=== PATIENT | female | born 1960 | race Caucasian/White ===

== ENCOUNTER 2022-09-01 14:21 | Outpatient (CLI) | payer BC, SELFPAY ==
[2022-09-01 14:38] LABS: Basophils Absolute Auto 0.1 K/mm3 (0.0-0.1); Basophils Percent Auto 1.4 % (0.2-1.2); Eosinophils Absolute Auto 0.2 K/mm3 (0-0.3); Hematocrit 45.5 % (37.0-47.0); Hemoglobin 14.9 g/dL (12.0-15.0); Immature Granulocyte Absolute 0.01 K/mm3 (0.00-0.031); Immature Granulocyte Percent A 0.2 % (0-0.5); Lymphocytes Absolute Auto 1.39 K/mm3 (0.9-3.2); Lymphocytes Percent Auto 24.4 % (18.3-44.2); Mean Corpuscular HGB Conc 32.7 g/dl (32-36); Mean Corpuscular Hemoglobin 31.6 pg (26-34); Mean Corpuscular Volume 96.6 fl (80-100); Mean Platelet Volume 10.1 fl (7.4-10.4); Monocytes Absolute Auto 0.7 K/mm3 (0.1-0.6); Monocytes Percent Auto 11.4 % (2.6-8.5); Neutrophils Absolute Auto 3.3 K/mm3 (1.3-6.7); Neutrophils Percent Auto 58.6 % (45.5-73.1); Platelet Count Result 285 k/mm3 (150-375); Red Blood Count 4.71 M/mm3 (4.2-5.4); Red Cell Distribution Width 12.4 % (11.5-14.5); White Blood Count 5.7 K/mm3 (4.5-10.0)
[2022-09-01 16:16] LABS: Alanine Aminotransferase 28 U/L (6-35); Albumin Level 4.8 g/dL (3.5-5.1); Alkaline Phosphatase 36 U/L (38-126); Anion Gap 11 mmol/L (8-16); Aspartate Amino Transferase 33 U/L (14-36); Bilirubin,Total 0.7 mg/dL (0.2-1.3); Blood Urea Nitrogen 14 mg/dL (7-17); Calcium 9.7 mg/dL (8.4-10.2); Carbon Dioxide 26 mmol/L (22-30); Chloride 104 mmol/L (98-107); Estimated Glomerular Filt Rate > 60; Glucose 104 mg/dL (65-110); Potassium 4.2 mmol/L (3.4-5.0); Sodium 141 mmol/L (137-145)
[2022-09-04 08:08] LABS: CA 15-3 10 U/mL (<32)
== END 2022-09-01 14:22 | disposition home or self-care (01) ==
LOC: ANHLAB 14:24
PROVIDERS: Visit Provider Internal Medicine Hematology & Oncology
DX: C50.012 Malignant neoplasm of nipple and areola, left female breast (principal); Z17.0 Estrogen receptor positive status [ER+]
CPT/HCPCS: 36415; 80053; 85025; 86300

== ENCOUNTER 2023-09-01 12:52 | Outpatient (CLI) | payer BC, SELFPAY ==
--- NOTE | ~2023-09-01 | DEXA_ITS ---
Bone Density Report Name: HOLLI MARSHALL Age: 63 Sex: Female Ethnicity: White Date of : 1960 Indication: postmenopausal; screening for osteoporosis; cancer; hysterectomy; Referring Provider: MIGUE RED Study: Bone densitometry was performed. Exam Date: September 01, 2023 Accession number: [id number] Bone Density: Region BMD T-score Z-score Classification AP Spine(L1-L4) 1.105 0.5 2.2 Normal Femoral Neck (Left) 0.708 -1.3 0.2 Osteopenia Total Hip (Left) 0.948 0.1 1.2 Normal Femoral Neck (Right) 0.795 -0.5 1.0 Normal Total Hip (Right) 0.923 -0.2 1.0 Normal Total Hip Mean 0.935 -0.1 1.1 Normal World Health Organization criteria for BMD impression classify patients as: Normal (T-score at or above -1.0), Osteopenia (T-score between -1.0 and -2.5), or Osteoporosis (T-score at or below -2.5). 10-year Fracture Risk(1): Major Osteoporotic Fracture 7.6% Hip Fracture 0.6% Reported Risk Factors: [place] (), Neck BMD=0.708, BMI=37.6 (1) FRAX(R) Version 3.08. Fracture probability calculated for an untreated patient. Fracture probability may be lower if the patient has received treatment. Clinical Information Provided by Patient: Has used the following medications: Vitamin D, Calcium Has the following medical conditions: Cancer, Hysterectomy Patient maximum height was 68 Menopause Age: 46 Onset of menses at age 12 Number of children 2 Impression: The patient has low bone mass, based on the Left Femoral Neck T-score. The patient has an estimated ten-year risk of hip fracture of 0.6% and an estimated ten-year risk of major fracture of 7.6%, based on the WHO FRAX algorithm. Discussion: BONE DENSITY IS LOW AT ONE OR MORE SKELETAL SITES. This patient's lowest T-score is low at one or more skeletal sites. It meets the World Health Organization's (WHO) criteria for ?low bone mass? (T-score between -1.0 and -2.5). The patient's 10-year risk of fracture as calculated by FRAX is less than the threshold where pharmacological therapy is recommended by the National Osteoporosis Foundation (NOF). However, all treatment decisions require clinical judgment and consideration of individual patient factors, including patient preferences, comorbidities, previous drug use, risk factors not captured in the FRAX model (e.g., frailty, falls, vitamin D deficiency, increased bone turnover, interval significant decline in bone density) and possible under or overestimation of fracture risk by FRAX. The patient should follow a healthful lifestyle (good nutrition with adequate calcium and vitamin D, and appropriate weight-bearing exercise). Follow-Up: Consider repeating this study in 2 to 3 years to reassess this patient's status, or sooner if there is some new clinical indication. Reporte
== END 2023-09-01 12:53 | disposition home or self-care (01) ==
PROVIDERS: Visit Provider Internal Medicine Hematology & Oncology
DX: Z78.0 Asymptomatic menopausal state (principal); M85.89 Other specified disorders of bone density and structure, multiple sites
CPT/HCPCS: 77080

== ENCOUNTER 2023-09-07 14:02 | Outpatient (CLI) | payer BC, SELFPAY ==
[2023-09-07 14:25] LABS: Basophils Absolute Auto 0.1 K/mm3 (0.0-0.1); Basophils Percent Auto 1.4 % (0.2-1.2); Eosinophils Absolute Auto 0.2 K/mm3 (0-0.3); Eosinophils Percent Auto 3.4 % (0-4.4); Hematocrit 40.4 % (37.0-47.0); Hemoglobin 13.2 g/dL (12.0-15.0); Immature Granulocyte Absolute 0.02 K/mm3 (0.00-0.031); Immature Granulocyte Percent A 0.3 % (0-0.5); Lymphocytes Absolute Auto 1.39 K/mm3 (0.9-3.2); Lymphocytes Percent Auto 19.9 % (18.3-44.2); Mean Corpuscular HGB Conc 32.7 g/dl (32-36); Mean Corpuscular Hemoglobin 31.4 pg (26-34); Mean Platelet Volume 9.3 fl (7.4-10.4); Monocytes Absolute Auto 0.7 K/mm3 (0.1-0.6); Monocytes Percent Auto 10.4 % (2.6-8.5); Neutrophils Absolute Auto 4.5 K/mm3 (1.3-6.7); Neutrophils Percent Auto 64.6 % (45.5-73.1); Platelet Count Result 304 k/mm3 (150-375); Red Blood Count 4.21 M/mm3 (4.2-5.4); Red Cell Distribution Width 12.3 % (11.5-14.5)
[2023-09-07 17:48] LABS: Alanine Aminotransferase 26 U/L (6-35); Albumin Level 4.8 g/dL (3.5-5.1); Alkaline Phosphatase 34 U/L (38-126); Anion Gap 8 mmol/L (8-16); Aspartate Amino Transferase 59 U/L (14-36); Bilirubin,Total 0.7 mg/dL (0.2-1.3); Blood Urea Nitrogen 14 mg/dL (7-17); Calcium 9.6 mg/dL (8.4-10.2); Carbon Dioxide 26 mmol/L (22-30); Chloride 99 mmol/L (98-107); Estimated Glomerular Filt Rate > 60; Glucose 93 mg/dL (65-110); Potassium 4.2 mmol/L (3.4-5.0); Sodium 133 mmol/L (137-145)
[2023-09-11 20:45] LABS: CA 15-3 13 U/mL (<32)
== END 2023-09-07 14:03 | disposition home or self-care (01) ==
LOC: ANHLAB 14:04
PROVIDERS: Visit Provider Internal Medicine Hematology & Oncology
DX: C50.012 Malignant neoplasm of nipple and areola, left female breast (principal); Z17.0 Estrogen receptor positive status [ER+]
CPT/HCPCS: 36415; 80053; 85025; 86300

== ENCOUNTER 2024-09-05 12:05 | Outpatient (CLI) | payer MEDICARE, BC, SELFPAY ==
[2024-09-05 12:14] LABS: Basophils Absolute Auto 0.1 K/mm3 (0.0-0.1); Basophils Percent Auto 1.5 % (0.2-1.2); Eosinophils Absolute Auto 0.3 K/mm3 (0-0.3); Eosinophils Percent Auto 5.6 % (0-4.4); Hematocrit 40.1 % (37.0-47.0); Immature Granulocyte Absolute 0.02 K/mm3 (0.00-0.031); Immature Granulocyte Percent A 0.4 % (0-0.5); Lymphocytes Absolute Auto 1.35 K/mm3 (0.9-3.2); Mean Corpuscular HGB Conc 32.4 g/dl (32-36); Mean Corpuscular Hemoglobin 31.4 pg (26-34); Mean Corpuscular Volume 96.9 fl (80-100); Mean Platelet Volume 9.3 fl (7.4-10.4); Monocytes Absolute Auto 0.8 K/mm3 (0.1-0.6); Monocytes Percent Auto 13.9 % (2.6-8.5); Neutrophils Absolute Auto 2.9 K/mm3 (1.3-6.7); Neutrophils Percent Auto 53.6 % (45.5-73.1); Platelet Count Result 294 k/mm3 (150-375); Red Blood Count 4.14 M/mm3 (4.2-5.4); Red Cell Distribution Width 12.8 % (11.5-14.5); White Blood Count 5.4 K/mm3 (4.5-10.0)
[2024-09-05 17:08] LABS: Alanine Aminotransferase 27 U/L (6-35); Albumin Level 4.4 g/dL (3.5-5.1); Alkaline Phosphatase 32 U/L (38-126); Anion Gap 9 mmol/L (4-12); Aspartate Amino Transferase 31 U/L (14-36); Bilirubin,Total 0.7 mg/dL (0.2-1.3); Blood Urea Nitrogen 13 mg/dL (7-17); Carbon Dioxide 25 mmol/L (22-30); Chloride 105 mmol/L (98-107); Estimated Glomerular Filt Rate 50; Glucose 97 mg/dL (65-110); Potassium 4.5 mmol/L (3.4-5.0); Sodium 139 mmol/L (137-145)
[2024-09-07 11:59] LABS: CA 15-3 9 U/mL (<32)
== END 2024-09-05 12:06 | disposition home or self-care (01) ==
LOC: ANHLAB 12:06
PROVIDERS: Visit Provider Internal Medicine Hematology & Oncology
DX: C50.012 Malignant neoplasm of nipple and areola, left female breast (principal); Z17.0 Estrogen receptor positive status [ER+]
CPT/HCPCS: 36415; 80053; 85025; 86300

== ENCOUNTER 2025-09-17 09:40 | Outpatient (CLI) | payer MEDICARE, BC, SELFPAY ==
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
--- OUTSIDE RECORDS SUMMARY | 2025-09-17 10:49 | XMS_ITS | Data Portability ---
Author Organization [facility], [id number] Address [address] [place] [address] Assessment No assessment recorded. Plan of Treatment Reminders Order Date Submit Date Provider Last Modified By Organization Details Last Modified Time Details Appointments ANNUAL- EST 15 2025 09:45A M GREGORIA ISBELL CNM Not available Not available Not available Lab None recorded. Referral None recorded. Procedures None recorded. Surgeries None recorded. Imaging None recorded. Medication Orders estradiol 0.01% (0.1 mg/gram) vaginal cream 2024 025 [facility], [facility], [place], [address], 02/14/2025 12:23:19 Patient TargetsNo targets recorded. Patient InstructionsNo instructions recorded. Reason for Referral None Reported. Problems Name Problem SNOMED Code Status Onset Date Resolution Date Notes Provider Name and Address Organization Details Recorded Time History of malignant neoplasm of breast 746028063 Active Cancer, Breast, [facility] since 2012, reconstruc tive sgy, sees doctors in [facility] regularly. Problem Code Descriptio n: 'Cancer, Breast'; Problem Code Type: 'ICD-9'; Problem Code: 'V10.3'; Not Available [facility] 12:38:47 Essential hypertens ion 02769698 Active Hypertensi on, 01/01/2019 - jl Problem Code: 401.9; Problem Code Type: ICD-9; Not Available [facility] 12:38:47 Malignant neoplasm of breast 549721741 Active 2024 Indra estevez, [place] - [facility] 5 07:28:18 Hypertens jaren disorder 70536426 Active 2024 Indra Paula null, [place] - [facility] 5 07:28:30 Hypothyro idism 22328967 Active 2024 Indra Paula [place], [place] - [facility] 5 07:28:41 Atrophy of vagina 068996935 Active 2024 GREGORIA ISBELL [facility] [address] [facility] [address] [facility] [address], [place], [address] , [facility] - [facility] 5 12:22:24 Problem Notes None recorded. Procedures Surgical History Date Name Laterality Status Provider Name and Address Organization Details Recorded Time 10/21/20 24 Date of Last Colonoscopy completed Indra Paula [facility] 02/14/2025 12:10:19 01/12/20 23 Date of Last Pap Smear completed Indra Paula [facility] 02/13/2025 07:30:38 11/21/19 12 Date of Last Mammogram completed Indra Paula [facility] 02/14/2025 12:10:36 procedure on vein completed Indra Paula [facility] 02/13/2025 07:33:00 Sinus Surgery completed Indra Paula [facility] 02/13/2025 07:33:08 Bilateral Mastectomy completed Indra Paula [facility] 02/13/2025 07:33:25 Colonoscopy completed Indra Paula [facility] 02/13/2025 07:33:34 Appendectomy completed Indra Paula [facility] 02/13/2025 07:33:55 Total Hysterectomy completed Indra Paula [facility] 02/14/2025 12:08:07 Breast Surgery completed Indra Paula [place] - [facility] 02/14/2025 12:08:07 [facility] 12:08:07 Appendectomy completed Not Available [facility] 03/21/2025 15:04:34 section completed Not Available [facility] 03/21/2025 15:04:34 total mastectomy NEC completed Not Available [facility] 03/21/2025 15:04:34 other specified functional endoscopic sinus surgery - therapeutic endoscopy of nose or sinus completed Not Available [facility] 03/21/2025 15:04:34 colonoscopy completed Not Available [facility] 03/21/2025 15:04:34 Imaging Results None recorded. Procedure Notes None recorded. Medical Equipment None Reported. Allergies Allergen ID Allergen Name Allergen Category Reaction Reaction Severity Criticality Documentation Date Start Date Code Code System Note Provider Name and Address Organization Details Recorded Time 478858 benzoin resin medicatio n Not available Not available Not available 02/13/2025 1406 RxNorm Indra [facility] 5 07:27:54 854350 amitripty line medicatio n Not available Not available Not available 02/13/2025 704 RxNorm [facility] 07:28:05 Medications Name Sig Start Date Stop Date Status Note LastModified by Organization Details LastModified Time furosemide 40 mg tablet TAKE ONE TABLET BY MOUTH DAILY active Not Available Not Available No t Available Synthroid 150 mcg tablet Take 1 tablet every day by oral route. active Not Available Not Available No t Available Aldactone 50 mg tablet Take 1 tablet every day by oral route. active Not Available Not Available No t Available estradiol 0.01% (0.1 mg/gram) vaginal cream Insert 1 g by vaginal route as directed for 90 days. 2024 active Not Available Not Available Not Avai lable Tricor 145 mg tablet Take 1 tablet every day by oral route. active Not Available Not Available No t Available zinc active Not Available Not Availa ble Not Available Vitamin D active Not Available Not Zoe ilable Not Available multivitamin active Not Available Not Available Not Available Fish Oil 1,000 mg (120 mg-180 mg) capsule Take by oral route. active Not Available Not Available No t Available Vitals Date Recorded Body height Body mass index (BMI) Body weight Systolic And Diastolic Provider Name and Address Organization Details Last Updated DateTime 02/14/2025 172.72 cm 40.3 kg/m2 231227.98 g 138/72 mm[Hg] Indra Paula [facility] 02/14/2025 12:07:53 Social History Question Answer Notes LastModified by CDEL Details LastModified Time Tobacco Smoking Status Former Smoker Indra Paula [facility] 02/14/2025 12:08:03 Do You Have An Advance Directive? Yes Information not available 02/14/2025 If You Are , What Was Your Level Of Alcohol Consumption Prior To ? None Information not available 02/14/2025 What Is Your Level Of Caffeine Consumption? Moderate Information not available 02/14/2025 What Type Of Diet Are You Following? REGULAR Information not available 02/14/2025 What Is Your Relationship Status? Other Note: Information not available 03/21/2025 Sex: Unknown Functional Status Question Answer Note LastModified by CDEL Details LastModified Time Do you use any illicit or recreational drugs? No Information not available 03/21/2025 What is your level of alcohol consumption? Moderate Information not available 02/14/2025 Are you currently employed? No Information not available 02/14/2025 What is your occupation? Note: Retired Information not available 03/21/2025 Mental Status None recorded. Family History Relationship Description Onset Age of this Age Resolved Age Notes LastModified by Organization Details LastModified Time Father Malignant neoplasm of lung [email or web address] Not available 2024 07:32:26 Father Heart disease [email or web address] Not available 2024 07:32:33 Father Family history of stroke [email or web address] Not available 2024 07:32:45 Sister History taken NOS Other 4/6 sister s w/ Auto immune diseas e Not available 03/21/2025 17:20:52 Father Cerebrovascu lar accident Stroke [email or web address] Not available 11/2024 17:20:53 Father Malignant neoplastic disease Cancer Mother -hormo nal, Father -lung Not available 03/21/2025 17:20:53 Mother Malignant neoplastic disease Cancer Mother -hormo nal, Father -lung Not available 03/21/2025 17:20:53 Medical History Condition Response Cancer- Genetic screening Cancer- Breast Y Endocrinology- Hypothyroidism Y Cardiology- High Blood Pressure Y Gynecological History Statement/Question Response History of PCOS N History of Fibroids N Date of Last Mammogram 11/21/2011 History of Infertility N History of Vulvar Dysplasia N History of Cervical Dysplasia N Duration of Flow (days) 0 Age at Menarche 11 Current Control Method None History of Recurrent Ovarian Cysts N If Post Menopausal, Age at Menopause 1 History of Endometriosis N Date of Last Colonoscopy 10/21/2024 Frequency of Cycle (Q days) 0 Sexually Active? Y History of Dysmenorrhea N Menses Monthly N Date of Last Pap Smear 01/12/2023 Sexual Problems? N History of Sexually Transmitted Infectio n N Date of Last Cholesterol Screening 08/21 Date of Last Bone Density 2018 Obstetrics History GPAL:G 3 P 2 0 1 2 Type Value Multiple Births 0 Full Term 2 Induced 0 Spontaneous 1 Premature 0 Living 2 Ectopics 0 Total 3 Past Encounters Encounter ID Performer Location Encounter Start Date Encounter Closed Date Diagnosis/Indication Diagnosis SNOMED-CT Code Diagnosis ICD10 Code Diagnosis IMO Codes Diagnosis Note [id number] [address], [place] [id number] 7 [facility] [address] [address] [place] [address] 02/14/2025 11:58:09 02/14/2025 12:25:23 Gynecologic examination 28856367 Z01.419 Atrophy of vagina 278241 009 N95.2 Health Concerns Section Related Observation LastModified by Organization Detai ls LastModified Time None Recorded Concern Status LastModified by Organization Details LastModified Time None Recorded Advance Directives Directive Y: Payers Insurance Date Sequence Insurance Name Policy Number Policy Fernandez Covered Member ID Fernandez Member ID Guarantor Name 03/08/2025 2 [place] ([place]) [id number] Charles Long [id number] Charles Long 02/14/2025 1 [place] Chloe Long [id number] Charles Long Notes Date Note Type Note Provider Name and Address Organization Details Recorded Time 02/14/2025 text/html Annual Postmenop ausal ([facility])Reported by PatientHPIFor patient relationship to practice, patient reportsestablished patient. For current medical history, patient reportsno active medical problems. For menopausal symptoms, patient reportsnot present. For hrt, patient reportsnever on hrt. For vaginal bleeding, patient reportsno. For sexually active, patient reportsyes: same partner. For sti screen, patient reportsdeclines. For mammogram, patient reportsnot applicable(oncologist told her no longer needs to do mammograms or imaging.). For pap smear +/- hpv cotesting, patient reportsnot applicable. For thyroid/lipid screening, patient [id number]-[id number]. For colonoscopy, patient bqhjuevts-si-rodi. For bone density study, patient reportsdue(has scheduled in august.). For patient has, patient reportsprimary care physician: yes. GREGORIA ISBELL [facility] [address] [facility] [address] [facility] [address], [place], [address] [place] [address] [facility] 02/14/2025 12:23:18 OBGyn Episode Ob Episode Information Episode Created Date Number of Fetuses Patient Bloodtype Patient rh Status Prepregnancy Weight lbs Domestic Partner Domestic Partner Phone Father Name Pharmacy Services Director Status 04/05/20 25 1 CLOSED Fetus Data First Name Last Name Admitted to NICU Weight (g) Sex Living Outcome Pediatric Complications Fetus ID Race Codes Race Delivery Type F [id number] z_[place] Luis Fernando Calculation Initial Luis Fernando Date Initial Exam Date Initial Exam Provider Initial Ultrasound Date Last Menstrual Period Date Ultra Sound Weeks Gestation 0 Eighteen To Twenty Week Luis Fernando Update Ultra Sound Date Fundal Height At Umbil Quickening Date Ultra Sound Latest Weeks Gestation Final Luis Fernando Confirmed By Final Luis Fernando Confirmed Date Final Luis Fernando Date Ultra Sound Latest Days Gestation 0 0 Menstrual History Last Menstrual Date Menses Monthly On Bcp Conception Prior Menses Frequency Hcg Plus Date Menarche Onset Age Delivery Information Delivery Date Delivery Type Labor Anesthesia Weeks Gestation Incision Type Labor Labor Length Hrs Delivered By Post Complications Tubal Sterilization Discharge Date Comments 3 Regional-Sp inal 40 false SJB, fetus_1_w eight_lbs : '7lbs 12oz'; Discharge Information Feeding Method Contraceptive Method Maternal HG B and HCT Levels Ob Episode Information Episode Created Date Number of Fetuses Patient Bloodtype Patient rh Status Prepregnancy Weight lbs Domestic Partner Domestic Partner Phone Father Name Pharmacy Services Director Status 04/05/20 25 1 CLOSED Fetus Data First Name Last Name Admitted to NICU Weight (g) Sex Living Outcome Pediatric Complications Fetus ID Race Codes Race Delivery Type M [id number] z_[place] Luis Fernando Calculation Initial Luis Fernando Date Initial Exam Date Initial Exam Provider Initial Ultrasound Date Last Menstrual Period Date Ultra Sound Weeks Gestation 0 Eighteen To Twenty Week Luis Fernando Update Ultra Sound Date Fundal Height At Umbil Quickening Date Ultra Sound Latest Weeks Gestation Final Luis Fernando Confirmed By Final Luis Fernando Confirmed Date Final Luis Fernando Date Ultra Sound Latest Days Gestation 0 0 Menstrual History Last Menstrual Date Menses Monthly On Bcp Conception Prior Menses Frequency Hcg Plus Date Menarche Onset Age Delivery Information Delivery Date Delivery Type Labor Anesthesia Weeks Gestation Incision Type Labor Labor Length Hrs Delivered By Post Complications Tubal Sterilization Discharge Date Comments 2 Regional-Sp inal 40 false SJB, fetus_1_w eight_lbs : '9lbs 14oz'; Discharge Information Feeding Method Contraceptive Method Maternal HG B and HCT Levels
--- OUTSIDE RECORDS SUMMARY | 2025-09-17 10:49 | XMS_ITS | Clinical Summary ---
Author Organization [facility] Address [address] [place] [address] Care Team Providers Care Forklift Truck Mechanic Name Role Phone Criselda Mendoza Jenny HOANG Primary Care Provider [phone] Allergies Active Allergy Reactions Criticality Noted Date Comments Amitriptyline Hives,Rash High 08/01/2015 Benzoin Hives,Unknown Medium 09/29/2015 Benzoyl Rash Medium 12/16/2009 Benzoyl Peroxide Unknown 12/30/2022 Nsaids (Non-Steroidal Anti-Inflammatory Drug) Unknown 11/09/2012 Has only 1 kidney Medications aspirin 81 mg enteric coated tablet Take 1 tablet (81 mg total) by mouth daily 4 Active calcium carbonate-vitamin D3 1,500 mg (600 mg elemental)-400 unit capsule Take by mouth daily 6 Active cholecalciferol (VITAMIN D-3) 1,000 unit capsule Take 5 capsules (5,000 Units total) by mouth daily Active docosahexaenoic acid-epa 120-180 mg capsule Take 1 capsule by mouth daily Active fenofibrate nanocrystallized (TRICOR) 145 mg tablet 3 Active letrozole (FEMARA) 2.5 mg tablet 3 Active levothyroxine (SYNTHROID) 150 mcg tablet 2 Active lisinopriL (PRINIVIL,ZESTRIL) 10 mg tablet 3 Active multivit with minerals/lutein (MULTIVITAMIN 50 PLUS ORAL) Active multivitamin tablet Take 1 tablet by mouth daily Active omega 1-rrj-xua-fish oil 1,200 (144-216) mg capsule Active Active Problems Problem Noted Date Diagnosed Date Hypertension 03/20/2011 Overview (03/02/2018): Description: Hypertension Chronic renal insufficiency, stage III (moderate ) 03/20/2011 Overview (03/02/2018): Description: Chronic Kidney Disease, Stage 3 Renal osteodystrophy 03/20/2011 Overview (03/02/2018): Description: Renal Osteodystrophy Surgical History Surgery Date Site/Laterality Comments SECTION HYSTERECTOMY SPLENECTOMY MASTECTOMY APPENDECTOMY Medical History Medical History Date Comments Deep vein thrombosis (HCC) Cancer (HCC) Hypercholesteremia Hypertension Kidney stone Thyroid disease Social History Tobacco Use Types Packs/Day Years Used Date Smoking Tobacco: Former Tobacco Cessation:Counseling Given: Not Answered Personal Safety Answer Date Recorded Getting School Help Needed Not on file 01/16 Comments Unknown Sex and Gender Information Value Date Recorded Sex Assigned at Not on file 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 Gender Identity Not on file Sexual Orientation Not on file Obstetrics History Last Filed Vital Signs Vital Sign Reading Time Taken Comments Blood Pressure - - Pulse - - Temperature - - Respiratory Rate - - Oxygen Saturation - - Inhaled Oxygen Concentration - - Weight 113.4 kg (250 lb) 03/03/2023 9:57 AM CDT Height 175.3 cm (5' 9) 03/03/2023 9:57 AM CDT Body Mass Index 36.92 03/03/2023 9:57 AM CDT Plan of Treatment Health Maintenance Due Date Last Done Comments Breast Cancer Screening-Mammogram 1960 Colon Cancer Screening-Colonoscopy 1960 Depression Screening 1960 Fall Risk Assessment 1960 Hepatitis C Screening 1960 Osteoporosis Screening-Bone Density Scan 1960 Hepatitis B Screening 1977 Zoster Vaccine (1 of 2) 12/17/2014 10/22/2014 DTaP/Tdap/Td Vaccine (2 - Td or Tdap) 05/02/2023 05/02/2013 Well Visit 65+ 2024 Covid-19 Vaccine (5 - 2024-2 6 season) 2025 2022, 07/16/2021, 01/12/2021, Additional history exists Influenza Vaccine (#1) 2025 , 08/28/2021, 08/28/2021, Additional history exists Pneumococcal vaccine 65+ (3 of 3 - PCV20 or PCV21) 08/28/2026 08/28/2021, 05/03/2013 [place] Care Teams Forklift Truck Mechanic Relationship Specialty Start Date End Date Criselda Mendoza DO PCP - General Internal Medicine 12/08/22
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
== END 2025-09-17 09:41 | disposition home or self-care (01) ==
LOC: ANHFOHIMG 09:45
PROVIDERS: Visit Provider Internal Medicine Hematology & Oncology
DX: M85.89 Other specified disorders of bone density and structure, multiple sites (principal); Z13.820 Encounter for screening for osteoporosis
CPT/HCPCS: 36415; 77080; 80053; 85025; 86300

== ENCOUNTER 2025-09-17 10:22 | Outpatient (CLI) | payer MEDICARE, BC, SELFPAY ==
[2025-09-17 10:44] LABS: Hematocrit 39.4 % (37.0-47.0); Hemoglobin 12.8 g/dL (12.0-15.0); Immature Granulocyte Percent A 0.4 % (0-0.5); Lymphocytes Absolute Auto 1.23 K/mm3 (0.9-3.2); Mean Corpuscular HGB Conc 32.5 g/dl (32-36); Mean Corpuscular Hemoglobin 31.2 pg (26-34); Mean Corpuscular Volume 96.1 fl (80-100); Nucleated Red Blood Cells Absolute Auto 0.000 K/mm3 (0.0-0.012); Nucleated Red Blood Cells Perc 0.0 % (0.0-0.2); Platelet Count Result 293 k/mm3 (150-375); Red Blood Count 4.10 M/mm3 (4.2-5.4); White Blood Count 4.9 K/mm3 (4.5-10.0)
[2025-09-17 11:27] LABS: Alanine Aminotransferase 24 U/L (6-35); Albumin Level 4.4 g/dL (3.5-5.1); Alkaline Phosphatase 34 U/L (38-126); Anion Gap 9 mmol/L (4-12); Aspartate Amino Transferase 28 U/L (14-36); Bilirubin,Total 0.6 mg/dL (0.2-1.3); Blood Urea Nitrogen 18 mg/dL (7-17); Calcium 9.4 mg/dL (8.4-10.2); Carbon Dioxide 26 mmol/L (22-30); Chloride 103 mmol/L (98-107); Estimated Glomerular Filt Rate 43; Glucose 109 mg/dL (65-110); Potassium 4.5 mmol/L (3.4-5.0); Sodium 138 mmol/L (137-145); Total Protein 6.8 g/dL (6.3-8.2)
--- OUTSIDE RECORDS SUMMARY | 2025-09-17 11:54 | XMS_ITS | Clinical Summary ---
Author Organization [facility] Address [address] [place] [address] Care Team Providers Care Encapsulator Name Role Phone Criselda Mendoza Jenny HOANG Primary Care Provider +1- [phone] Allergies Active Allergy Reactions Criticality Noted Date [...] 1 tablet by mouth daily Active omega 3-atc-vfu-fish oil 1,200 (144-216) mg capsule Active Active [...] on file Legal Sex Female 8:25 AM JOCKEY'S AGENT Gender Identity Not on file Sexual Orientation [...] PCV20 or PCV21) 08/28/2026 08/28/2021, 05/03/2013 [place] [email or web address] [email or web address] Care Teams Encapsulator Relationship Specialty Start Date End Date Criselda Mendoza DO PCP - General Internal Medicine 12/08/22
== END 2025-09-17 10:23 | disposition home or self-care (01) ==
LOC: ANHLAB 10:24
PROVIDERS: Visit Provider Internal Medicine Hematology & Oncology
DX: C50.012 Malignant neoplasm of nipple and areola, left female breast (principal); Z17.0 Estrogen receptor positive status [ER+]
CPT/HCPCS: 36415; 80053; 85025; 86300